=== PATIENT | female | born 1975 | race Caucasian/White ===

== ENCOUNTER 2016-12-26 12:27 | Emergency (ER) | payer MEDICAID, OTHER ==
[~2016-12-26] VITALS: Ht 165.1 cm; Wt 131.0 kg
[~2016-12-26 12:27] MED LIST: BUTA1CAP PO; CANA300T PO; CARV6.252 PO; GLIM4TAB PO; HYDR25TA5 PO; LEVO50TA4 PO; METF500T4 PO; OMEP40CA2 PO; POTA10TA8 PO
[2016-12-26 12:29] VITALS: BP 151/80; PULSE 77; RESP 16; TEMP 97.5; O2SAT 97
--- NOTE | 2016-12-26 12:48 | PD ---
HPI Chief Complaint: Back/ Neck Pain or Injury Time Seen by Provider: 12:38 Travel History International Travel<30 days: No Contact w/Intl Traveler<30days: No Traveled to known affect area: No History of Present Illness HPI 41-year-old female presents emergency Department with mildly painful swelling to the posterior scalp. She states it started yesterday with a "soft tissue ridge from one ear to the other posteriorly". Patient now has "swollen squishy" area below this ridge on her posterior scalp today. She has mild achy pain to this area but denies any other constitutional symptoms such as fever, chills, headache, or sore throat. Denies any changes in soaps or shampoos. Denies recent insect bites. She has no known drug allergies. PFSH Past Medical History Hx Anticoagulant Therapy: No Arthritis: Yes (BACK) Anxiety: Yes Depression: Yes Heart Rhythm Problems: Yes (CAN FEEL HEART THUMPING) Cardiac Catheterization: Yes Cardiovascular Problems: Yes (HTN) High Cholesterol: No Congestive Heart Failure: No Diabetes: Yes Diminished Hearing: No GERD: Yes Genitourinary: No Headaches: Yes Hypertension: Yes Psychiatric: No Reproductive: No Thyroid Disease: Yes (HYPOTHYROID) ?: Not : 3 Para: 3 Tubal Ligation: Yes Past Surgical History Coronary Artery Bypass Graft: No Gynecologic Surgery: Yes (tubal ligation 2002) Other Surgery: Yes Social History Alcohol Use: No Tobacco Use: No (E CIG) Substance Use: No Allergies-Medications (Allergen,Severity, Reaction): Coded Allergies: No Known Allergies (Verified Adverse Reaction, Unknown, 12/26/16) Reported Meds & Prescriptions Reported Meds & Active Scripts Active Glimepiride 4 Mg Tab 4 Mg PO BIDAC Hydrochlorothiazide 25 Mg Tab 25 Mg PO DAILY Carvedilol 6.25 Mg Tab 6.25 Mg PO BID Reported Januvia (Sitagliptin Phosphate) 50 Mg Tab 50 Mg PO DAILY Potassium Chloride ER (Potassium Chloride) 10 Meq Tab 10 Meq PO BID Metformin ER (Metformin HCl) 500 Mg Meron 1,000 Mg PO BIDPC With evening meal Levothyroxine (Levothyroxine Sodium) 50 Mcg Tab 50 Mcg PO HS Review of Systems Except as stated in HPI: all other systems reviewed are Neg General / Constitutional: No: Fever Eyes: No: Visual changes HENT: No: Headaches Cardiovascular: No: Chest Pain or Discomfort Respiratory: No: Shortness of Breath Gastrointestinal: No: Abdominal Pain Genitourinary: No: Dysuria Musculoskeletal: No: Pain Skin: Positive Other (see history present illness), No Rash Neurologic: No: Weakness Psychiatric: No: Depression Endocrine: No: Polydipsia Hematologic/Lymphatic: No: Easy Bruising Physical Exam Narrative GENERAL: Patient is moderately obese female in no acute distress. SKIN: Warm and dry. Normal color. Normal turgor. No rash, or erythema. HEAD: Atraumatic. Normocephalic. Patient has palpable swelling to the posterior scalp over this region without obvious signs of infection or abscess. No insect bites or rashes appreciated. EYES: Pupils equal and round. No scleral icterus. No injection or drainage. ENT: No nasal bleeding or discharge. Mucous membranes pink and moist. Pharynx is clear. Airway is patent. NECK: Trachea midline. Supple nontender without significant lymphadenopathy. Range of motion is normal. CARDIOVASCULAR: Regular rate and rhythm. RESPIRATORY: No accessory muscle use. Clear to auscultation. Breath sounds equal bilaterally. MUSCULOSKELETAL: Extremities without clubbing, cyanosis, or edema. No obvious deformities. NEUROLOGICAL: Awake and alert. No obvious cranial nerve deficits. Motor grossly within normal limits. Five out of 5 muscle strength in the arms and legs. Normal speech. PSYCHIATRIC: Appropriate mood and affect; insight and judgment normal. Data Data Last Documented VS Vital Signs Date Time Temp Pulse Resp B/P (MAP) Pulse Ox O2 Delivery O2 Flow Rate FiO2 12/26/16 13:17 16 96 Room Air 12/26/16 12:29 97.5 77 151/80 (103) Orders Orders Complete Blood Count With Diff (12/26/16 12:49) Comprehensive Metabolic Panel (12/26/16 12:49) Iv Access Insert/Monitor (12/26/16 12:49) Ecg Monitoring (12/26/16 12:49) Oximetry (12/26/16 12:49) Sodium Chloride 0.9% Flush (Ns Flush) (12/26/16 13:00) Ct Soft Tiss Neck W Iv Cont (12/26/16 12:49) Westergren Sedimentation Rate (12/26/16 12:49) C-Reactive Protein (Crp) (12/26/16 12:49) Ct Brain W/O Iv Contrast(Rout) (12/26/16 ) Iohexol 350 Inj (Omnipaque 350 Inj) (12/26/16 13:37) Labs Laboratory Tests Test 12/26/16 13:10 White Blood Count 8.6 TH/MM3 Red Blood Count 5.20 MIL/MM3 Hemoglobin 14.5 GM/DL Hematocrit 42.7 % Mean Corpuscular Volume 82.1 FL Mean Corpuscular Hemoglobin 27.9 PG Mean Corpuscular Hemoglobin Concent 34.0 % Red Cell Distribution Width 12.7 % Platelet Count 117 TH/MM3 Mean Platelet Volume 8.9 FL Neutrophils (%) (Auto) 58.7 % Lymphocytes (%) (Auto) 30.3 % Monocytes (%) (Auto) 7.2 % Eosinophils (%) (Auto) 2.8 % Basophils (%) (Auto) 1.0 % Neutrophils # (Auto) 5.1 TH/MM3 Lymphocytes # (Auto) 2.6 TH/MM3 Monocytes # (Auto) 0.6 TH/MM3 Eosinophils # (Auto) 0.2 TH/MM3 Basophils # (Auto) 0.1 TH/MM3 CBC Comment DIFF FINAL Differential Comment Erythrocyte Sedimentation Rate 4 mm/hr Blood Urea Nitrogen 9 MG/DL Creatinine 0.62 MG/DL Random Glucose 149 MG/DL Total Protein 6.6 GM/DL Albumin 3.4 GM/DL Calcium Level 8.2 MG/DL Alkaline Phosphatase 65 U/L Aspartate Amino Transf (AST/SGOT) 85 U/L Alanine Aminotransferase (ALT/SGPT) 80 U/L Total Bilirubin 0.6 MG/DL Sodium Level 137 MEQ/L Potassium Level 3.6 MEQ/L Chloride Level 103 MEQ/L Carbon Dioxide Level 27.0 MEQ/L Anion Gap 7 MEQ/L Estimat Glomerular Filtration Rate 106 ML/MIN [facility] Medical Decision Making Medical Screen Exam Complete: Yes Emergency Medical Condition: Yes Differential Diagnosis Lymphangitis. Mastoiditis. Cellulitis. Allergic reaction. Narrative Course Patient is discussed with and seen with Dr. Reyes. CT of the head and neck is ordered with IV contrast for the neck. Labs are ordered including CBC, CMP, sedimentation rate and CRP. Labs are unremarkable for acute findings. Blood sugar is slightly elevated the patient is aware of her diabetes. CT shows possible sebaceous cyst in the posterior aspect of the scalp versus lymphangitis. Findings discussed with Dr. Reyes feel antibiotics are not warranted based on the patient's lab work. Patiently treated with ibuprofen 800 mg 3 times a day #30. Patient also recommended to use hot compresses to the area frequently through the day. Patient follow-up with her primary care physician in the next several days. Patient can return the emergency Department with worsening symptoms if necessary. Diagnosis Primary Impression: Sebaceous cyst Referrals: Primary Care Physician Patient Instructions: Cyst (ED), General Instructions Additional Instructions: Patiently treated with ibuprofen 800 mg 3 times a day #30. Patient also recommended to use hot compresses to the area frequently through the day. Patient follow-up with her primary care physician in the next several days. Patient can return the emergency Department with worsening symptoms if necessary. Med/Other Pt SpecificInfo: Prescription(s) given Disposition: 01 DISCHARGE HOME Condition: Stable Junior Barrera Dec 26, 2016 12:48
[2016-12-26] MEDS ORDERED: POTA10TA2 PO (12:51)
[2016-12-26] MEDS ORDERED: SITA50 PO (12:51)
[2016-12-26] MEDS ORDERED: SODIUM CHLORIDE 0.9% FLUSH 10 ML FLUSH IV FLUSH PRN (13:00)
[2016-12-26 13:17] VITALS: RESP 16; O2SAT 96; O2SAT 98
[2016-12-26 13:20] LABS: AUTOMATED NEUTROPHIL # 5.1 TH/MM3 (1.8-7.7); BASOPHIL # 0.1 TH/MM3 (0-0.2); EOSINOPHIL # 0.2 TH/MM3 (0-0.4); EOSINOPHIL % 2.8 % (0.0-4.0); HEMATOCRIT 42.7 % (35.0-46.0); HEMO FLAGS DIFF FINAL; LYMPH % 30.3 % (9.0-44.0); LYMPHOCYTE # 2.6 TH/MM3 (1.0-4.8); MEAN CELL VOLUME 82.1 FL (80.0-100.0); MEAN CORPUSCULAR HEMOGLOBIN 27.9 PG (27.0-34.0); MONO % 7.2 % (0.0-8.0); NEUT % 58.7 % (16.0-70.0); PLATELET COUNT 117 TH/MM3 (150-450); RED CELL DISTRIBUTION WIDTH 12.7 % (11.6-17.2); WHITE BLOOD COUNT 8.6 TH/MM3 (4.0-11.0)
[2016-12-26 13:27] LABS: CHLORIDE 103 MEQ/L (98-107); POTASSIUM 3.6 MEQ/L (3.5-5.1); SODIUM (NA) 137 MEQ/L (136-145)
[2016-12-26 13:31] LABS: ANION GAP 7 MEQ/L (5-15); BLOOD UREA NITROGEN 9 MG/DL (7-18)
[2016-12-26 13:34] LABS: ALT (GPT) 80 U/L (10-53); AST (GOT) 85 U/L (15-37); GLOMERULAR FILTRATION RATE 106 ML/MIN (>89)
[2016-12-26 13:36] LABS: TOTAL BILIRUBIN ADULT 0.6 MG/DL (0.2-1.0)
[2016-12-26 13:37] LABS: ALKALINE PHOSPHATASE 65 U/L (45-117)
[2016-12-26] MEDS ORDERED: IOHEXOL 350 MG/ML 10 ML VIAL (for RAD DIAG) IVCONTRAST ONE (13:37)
--- NOTE | 2016-12-26 13:59 | RADRPT ---
EXAM DATE/TIME: 12/26/2016 13:16 [facility] COMPARISON: No previous studies available for comparison. INDICATIONS : Occipital scalp swelling. No injury. RADIATION DOSE: 65.81 CTDIvol (mGy) MEDICAL HISTORY : Hypothyroidism. Hypertension. Gastroesophageal reflux disease. SURGICAL HISTORY : Tubal ligation. ENCOUNTER: Initial ACUITY: 3 days PAIN SCALE: 0/10 LOCATION: occipital TECHNIQUE: Multiple contiguous axial images were obtained of the head. Using automated exposure control and adj ustment of the mA and/or kV according to patient size, radiation dose was kept as low as reasonably a chievable to obtain optimal diagnostic quality images. DICOM format image data is available electro nically for review and comparison. FINDINGS: CEREBRUM: The ventricles are normal for age. No evidence of midline shift, mass lesion, hemorrhage or acute in farction. No extra-axial fluid collections are seen. POSTERIOR FOSSA: The cerebellum and brainstem are intact. The 4th ventricle is midline. The cerebellopontine angle i s unremarkable. EXTRACRANIAL: The visualized portion of the orbits is intact. SKULL: The calvaria is intact. No evidence of skull fracture. 8mm nodule in the deep subcutaneous tissues o verlying the right occiput is overtly benign and may represent a small sebaceous cyst CONCLUSION: 1. Probable 8mm sebaceous cyst in the subcutaneous tissues overlying the right occiput. 2. Otherwise negative. Lowell Rodriguez MD on December 26, 2016 at 13:57 Board Certified Radiologist. This report was verified electronically.
--- NOTE | 2016-12-26 14:04 | RADRPT ---
EXAM DATE/TIME: 12/26/2016 13:16 [facility] COMPARISON: No previous studies available for comparison. INDICATIONS : Posterior, upper neck swelling. IV CONTRAST: 75 cc Omnipaque 350 (iohexol) IV RADIATION DOSE: 21.82 CTDIvol (mGy) MEDICAL HISTORY : Hyperparathyroidism. Hypertension. Gastroesophageal reflux disease. SURGICAL HISTORY : Tubal ligation. ENCOUNTER: Initial ACUITY: 3 days PAIN SCALE: 0/10 LOCATION: neck TECHNIQUE: Volumetric scanning of the neck was performed. Using automated exposure control and adjustment of th e mA and/or kV according to patient size, radiation dose was kept as low as reasonably achievable to obtain optimal diagnostic quality images. DICOM format image data is available electronically for r eview and comparison. FINDINGS: NASOPHARYNX: The nasopharyngeal airway has a normal configuration. No mucosal thickening or mass is seen. OROPHARYNX: The intrinsic muscles of the tongue are symmetric. The tonsillar pillars are intact. The prevertebr al soft tissues are not thickened. LARYNX: The supraglottic, glottic, and infraglottic structures are intact. PARAPHARYNGEAL: The parapharyngeal space is intact. SALIVARY GLANDS: The parotid and submandibular glands are intact. LYMPH NODES: No enlarged or necrotic-appearing nodes. THYROID: Homogeneous enhancement without evidence of nodule. BONES: Unremarkable. SOFT TISSUES: Sub-centimeters nodules in the subcutaneous tissues of the neck may represent sebaceous cysts or smal l lymph nodes. Largest on the right measures 8 mm. CONCLUSION: 1. Small sebaceous cyst versus benign lymph nodes in the subcutaneous tissues of the neck overlying t he occiput bilaterally. 2. Otherwise negative. No suspicious mass lesions or adenopathy. Lowell Rodriguez MD on December 26, 2016 at 13:58 Board Certified Radiologist. This report was verified electronically.
[2016-12-26 14:10] VITALS: BP 134/69; PULSE 71; RESP 16; O2SAT 96
[2016-12-26] MEDS ORDERED: IBUP1TAB7 PO (14:17)
== END 2016-12-26 14:31 | disposition home or self-care (01) ==
LOC: PHEFT 12:27
DX: L72.3 Sebaceous cyst (principal); E03.9 Hypothyroidism, unspecified; E11.9 Type 2 diabetes mellitus without complications; I10 Essential (primary) hypertension; Z79.84 Long term (current) use of oral hypoglycemic drugs
CPT/HCPCS: 70450; 70491; 80053; 85025; 85652; 86140; 99285; Q9967